=== PATIENT | female | born 1985 | race Caucasian/White ===

== ENCOUNTER 2024-03-29 10:11 | Emergency (ER) | payer MEDICAID ==
[~2024-03-29] VITALS: Ht 165.1 cm; Wt 62.6 kg
[2024-03-29 10:45] VITALS: BP 109/69; TEMP 98.9
[2024-03-29] MEDS ORDERED: HYDR28.318 TP (10:50)
[2024-03-29] MEDS ORDERED: PRED20TA PO (10:50)
[2024-03-29 11:34] VITALS: O2SAT 100
== END 2024-03-29 11:35 | disposition home or self-care (01) ==
LOC: ER 10:11
DX: L29.9 Pruritus, unspecified (principal); Z79.52 Long term (current) use of systemic steroids